=== PATIENT | male | born 1940 | race Caucasian/White ===

== ENCOUNTER 2018-04-16 15:18 | Inpatient (IN) | payer MEDICARE, OTHER ==
[~2018-04-16] VITALS: Ht 167.6 cm; Wt 50.8 kg
[2018-04-16] MEDS ORDERED: ONDANSETRON HCL 4MG/2ML INJ IV STA (15:58)
[2018-04-16] MEDS ORDERED: SODIUM CHLORIDE 0.9% 250 ML IV ONE (16:02)
[2018-04-16] MEDS ORDERED: CLONIDINE 0.2MG TABLET PO ONE (16:15)
[2018-04-16 17:03] LABS: HEMATOCRIT. 34.1 % (42.0-52.0); HEMOGLOBIN. 11.5 g/dL (14.0-18.0); MEAN CORPUSCULAR HEMOGLOBIN 30.7 pg (28.0-32.0); MEAN CORPUSCULAR VOLUME 91.4 fL (80.0-94.0); MEAN PLATELET VOLUME 9.4 fl (7.4-10.4); PLATELET 83 x1000/uL (130-400); RED BLOOD CELL COUNT 3.73 mill/uL (4.7-6.1); RED CELL DISTRIBUTION WIDTH 18.8 % (11.6-14.6)
[2018-04-16 17:08] LABS: CHLORIDE 101 mEq/L (98-107)
[2018-04-16 17:09] LABS: INR 1.1; PARTIAL THROMBOPLASTIN TIME 26.9 sec (23.4-31.0); PROTHROMBIN TIME 10.7 sec (9.1-11.1)
[2018-04-16 17:11] LABS: ETHANOL BLOOD < 10 mg/dL
[2018-04-16 17:15] LABS: CREATINE KINASE 171 IU/L (39-308); T4 FREE 1.21 ng/dL (0.76-1.46)
[2018-04-16 17:18] LABS: CREATINE KINASE MB FRACTION 3.4 ng/mL (0.5-3.6)
[2018-04-16 17:23] LABS: PLATELET ESTIMATE DECREASED
[2018-04-16] MEDS ORDERED: CLONIDINE 0.1MG TABLET PO PRN (20:00)
[2018-04-16] MEDS ORDERED: ONDANSETRON HCL 4MG/2ML INJ IV PRN (20:00)
[2018-04-16 20:18] LABS: PHOSPHORUS 2.8 mg/dL (2.5-4.9)
[2018-04-16 20:39] LABS: CLARITY URINE TURBID (CLEAR); COLOR URINE YELLOW (YELLOW); KETONES URINE NEGATIVE (NEGATIVE); LEUKOCYTE ESTERASE URINE 3+ (NEGATIVE); NITRITE URINE NEGATIVE (NEGATIVE); OCCULT BLOOD URINE 2+ (NEGATIVE); PH URINE 8.5 (4.5-8.0); PROTEIN URINE 2+ (NEGATIVE); UROBILINOGEN URINE 0.2 E.U./dL (0.2-1.0)
[2018-04-16 20:53] LABS: *AMPHETAMINES SCREEN URINE NEGATIVE (NEGATIVE); *BARBITURATES SCREEN URINE NEGATIVE (NEGATIVE); *BENZODIAZEPINES SCREEN URINE NEGATIVE (NEGATIVE); *COCAINE SCREEN URINE NEGATIVE (NEGATIVE)
[2018-04-16 20:54] LABS: CANNABINOID URINE SCREEN NEGATIVE (NEGATIVE); METHADONE URINE SCREEN NEGATIVE (NEGATIVE); OPIATES URINE SCREEN NEGATIVE (NEGATIVE); PHENCYCLIDINE URINE SCREEN NEGATIVE (NEGATIVE)
[2018-04-16] MEDS ORDERED: AMLODIPINE 5MG TABLET PO NR (22:30)
[2018-04-17 02:05] VITALS: BP 103/57
[2018-04-17 04:00] VITALS: BP 144/66
[2018-04-17 06:14] LABS: BASOPHILS % 0.2 % (0.0-2.0); EOSINOPHILS % 0.2 % (0.0-5.0); HEMATOCRIT. 29.5 % (42.0-52.0); LYMPHOCYTES % 19.2 % (20.0-50.0); MEAN CORPUSCULAR HEMOGLOBIN 30.6 pg (28.0-32.0); MEAN CORPUSCULAR VOLUME 90.8 fL (80.0-94.0); MEAN PLATELET VOLUME 9.7 fl (7.4-10.4); MONOCYTES % 9.4 % (2.0-8.0); PLATELET 74 x1000/uL (130-400); RED BLOOD CELL COUNT 3.25 mill/uL (4.7-6.1); RED CELL DISTRIBUTION WIDTH 18.7 % (11.6-14.6)
[2018-04-17 08:00] VITALS: BP 141/59
[2018-04-17] MEDS: AMLODIPINE 5MG TABLET PO SCH ×2 (09:00→21:00)
[2018-04-17] MEDS: LOSARTAN POTASSIUM 50 MG TABLET PO SCH (09:00)
[2018-04-17 12:00] VITALS: BP 127/61
[2018-04-17] MEDS: CEFTRIAXONE 1 G PREMIX 50 ML IV SCH ×2 (14:00→17:20)
[2018-04-17 20:00] VITALS: BP 152/77
[2018-04-17 23:58] VITALS: BP 158/58
[2018-04-18] VITALS (7 sets, daily range): BP systolic 120–148; BP diastolic 50–72
[2018-04-18 07:29] LABS: BASOPHILS % 0.4 % (0.0-2.0); EOSINOPHILS % 1.2 % (0.0-5.0); HEMATOCRIT. 32.2 % (42.0-52.0); HEMOGLOBIN. 10.7 g/dL (14.0-18.0); LYMPHOCYTES % 31.5 % (20.0-50.0); MEAN CORPUSCULAR HEMOGLOBIN 30.5 pg (28.0-32.0); MEAN PLATELET VOLUME 9.8 fl (7.4-10.4); MONOCYTES % 9.9 % (2.0-8.0); PLATELET 65 x1000/uL (130-400); RED CELL DISTRIBUTION WIDTH 18.7 % (11.6-14.6)
[2018-04-18] MEDS: AMLODIPINE 5MG TABLET PO SCH ×2 (09:02→20:47)
[2018-04-18] MEDS: LOSARTAN POTASSIUM 50 MG TABLET PO SCH ×2 (09:02→20:47)
[2018-04-18] MEDS ORDERED: POLYETHYLENE GLYCOL 3350 (17GM) 1 DOSE PACK PO SCH (13:30)
[2018-04-18] MEDS ORDERED: LACTULOSE 20G/30ML UDC PO NR (13:45)
[2018-04-18] MEDS: CEFTRIAXONE 1 G PREMIX 50 ML IV SCH (14:22)
== END 2018-04-18 21:05 | disposition home or self-care (01) | DRG 73 ==
LOC: ER 15:18 → 7WST 18:34 → EDBEDREQTM 18:37 → EDBEDREQ 18:37 → ENRESERV 04-17 00:36
PROVIDERS: ADMIT Internal Medicine; ATTEND Internal Medicine
DX: G90.8 Other disorders of autonomic nervous system (principal); N18.6 End stage renal disease; N39.0 Urinary tract infection, site not specified; I12.0 Hypertensive chronic kidney disease with stage 5 chronic kidney disease or end stage renal disease; N25.81 Secondary hyperparathyroidism of renal origin; D69.6 Thrombocytopenia, unspecified; I95.3 Hypotension of hemodialysis; D63.8 Anemia in other chronic diseases classified elsewhere; I35.0 Nonrheumatic aortic (valve) stenosis; K59.00 Constipation, unspecified; N40.0 Benign prostatic hyperplasia without lower urinary tract symptoms; Z91.19 Patient's noncompliance with other medical treatment and regimen; Z99.2 Dependence on renal dialysis
CPT/HCPCS: 36415; 71045; 80048; 80061; 80305; 82550; 82553; 83036; 83605; 83880; 84100; 84439; 84443; 84484; 93005; 93306; 93970; 96361; 96374; 97162; 99285; A6261; J0696; J2405; J7050